=== PATIENT | female | born 1975 | race Two or more races ===

== ENCOUNTER → 2018-05-06 | Outpatient (CLI) | payer MEDICAID | LOC: FIMAGING 12:47 | PROVIDERS: ATTEND Surgery | DX: N63.23 Unspecified lump in the left breast, lower outer quadrant (principal); N63.22 Unspecified lump in the left breast, upper inner quadrant; R92.2 Inconclusive mammogram ==

== ENCOUNTER 2018-06-27 05:41 | Day surgery (SDC) | payer MEDICAID ==
[2018-06-27] MEDS ORDERED: LR 1,000 ML IV ONE (05:49)
[2018-06-27] MEDS ORDERED: LIDOCAINE 1% 300 MG/30 ML SDV ONE (06:57)
[2018-06-27] MEDS ORDERED: BUPIVACAINE/EPI 0.5% 30 ML SDV ONE (06:57)
--- NOTE | 2018-06-27 06:57 | PDHPUP ---
History & Physical Update H&P update statement: This history and physical update is based on an assessment of the patient which was completed after admission or registration (within 24 hours), but prior to the surgery/procedure. H&P update: H&P reviewed & patient examined, no change in patient's condition since H&P completed
--- NOTE | 2018-06-27 07:08 | PDANEPAE ---
ANE Past Medical History - Cardiovascular History Hx Hypertension: No Hx Arrhythmias: No Hx Chest Pain: No Hx Coronary Artery / Peripheral Vascular Disease: No Hx CHF / Valvular Disease: No Hx Palpitations: No - Pulmonary History Hx COPD: No Hx Asthma/Reactive Airway Disease: Yes Hx Recent Upper Respiratory Infection: No Hx Oxygen in Use at Home: No Hx Sleep Apnea: No Sleep Apnea Screening Result - Last Documented: Negative Pulmonary History Comment: MILD ASTHMA - W/URI INFS - Neurologic History Hx Cerebrovascular Accident: No Hx Seizures: No Hx Dementia: No - Endocrine History Hx Diabetes: No - Renal History Hx Renal Disorders: No - Liver History Hx Hepatic Disorders: No - Neurological & Psychiatric Hx Hx Neurological and Psychiatric Disorders: No - Cancer History Hx Cancer: No - Congenital Disorder History Hx Congenital Disorders: No - GI History Hx Gastrointestinal Disorders: No - Other Health History Other Health History: NEG - Chronic Pain History Chronic Pain: No - Surgical History Prior Surgeries: TUBAL LIGATION. PARTIAL HYSTERECTOMY. I & D BREAST INF. PAUL TUMORS BENIGN BREAST 2016. GANGLION CYST R WRIST. CHOLECYSTECTOMY ANE Review of Systems Review of Systems: - Exercise capacity METS (RN): 4 METS ANE Patient History - Allergies Allergies/Adverse Reactions: promethazine HCl [From Phenergan] Allergy (Severe, Verified 10/05/09 07:52) Dyspnea blue dye Allergy (Verified 06/27/18 06:02) FD and C blue no.1 [blue food coloring] Allergy (Verified 06/27/18 06:02) - Home Medications Home Medications: Advil 06/23/18 [Last Taken 06/20/18] 06/23/18 [Last Taken 06/23/18] - NPO status NPO Since - Liquids (Date): 06/27/18 NPO Since - Liquids (Time): 03:00 NPO Since - Solids (Date): 06/26/18 NPO Since - Solids (Time): 20:00 - Smoking Hx Smoking Status: Former smoker - Family Anes Hx Family Hx Anesthesia Complications: MOTHER SLOW TO AWAKEN ANE Labs/Vital Signs - Vital Signs Blood Pressure: 119/73 Heart Rate: 75 Respiratory Rate: 16 O2 Sat (%): 97 Height: 154.94 cm Weight: 74.843 kg ANE Physical Exam - Airway Mallampati Score: Class 1 - ASA Status ASA Status: II ANE Anesthesia Plan Anesthesia Plan: GA w LMA
[2018-06-27] MEDS ORDERED: PROPOFOL 200 MG/20 ML VIAL ONE (07:12)
[2018-06-27] MEDS ORDERED: MIDAZOLAM 2 MG/2 ML VIAL ONE (07:12)
[2018-06-27] MEDS ORDERED: fentaNYL 100 MCG/2 ML INJ ONE ×3 (07:12→09:01)
[2018-06-27] MEDS ORDERED: ONDANSETRON 4 MG/2 ML VIAL ONE (07:14)
[2018-06-27] MEDS ORDERED: LIDOCAINE 2% JELLY 6 ML TOPICAL SYR ONE (07:14)
[2018-06-27] MEDS ORDERED: METOCLOPRAMIDE 10 MG/2 ML VIAL ONE (07:14)
--- NOTE | 2018-06-27 08:18 | POSTOPPROG ---
Post Op Note Date of Operation: 06/27/18 Surgeon: Dale Nova Radio Mechanic Helper: Hermila Zaman Anesthesiologist: Wade Randhawa Anesthesia: GET(General Endotracheal) Pre-op Diagnosis: left breast mass Post-op Diagnosis: same Procedure: left central lumpectomy Findings: large multilobulated left central breast mass Inf/Abcess present in the surg proc area at time of surgery?: No EBL: Minimal Specimen(s): breast mass
[2018-06-27] MEDS ORDERED: HYDROCODONE/APAP 5/325 TAB PO PRN (08:34)
[2018-06-27] MEDS ORDERED: LR 500 ML IV PRN (08:34)
[2018-06-27] MEDS ORDERED: ALBUTEROL 3 ML DEYVIAL IH PRN (08:34)
[2018-06-27] MEDS ORDERED: NALOXONE HCL 0.4 MG/ML INJ IVP PRN (08:34)
[2018-06-27] MEDS ORDERED: fentaNYL 100 MCG/2 ML INJ IVP PRN (08:34)
--- NOTE | 2018-06-27 08:35 | POSTANESTH ---
Post Anesthetic Evaluation Cardiovascular Status: Normal, Stable Respiratory Status: Normal, Stable Level of Consciousness/Mental Status: Can Participate in Eval Pain Control: Adequate, Prn Tx Ordered Nausea/Vomiting Control: Adequate, Prn Tx Ordered Complications Possibly Related to Anesthesia: None Noted
--- NOTE | 2018-06-27 09:54 | GOP ---
[f rep st] OPERATIVE REPORT DATE OF OPERATION: 06/27/2018 SURGEON: Dale Nova MD [employer]OR [employer] SALESPERSON: Hermila Zaman PA-C. ANESTHESIA: General. ANESTHESIOLOGIST: Dr. Randhawa. PREOPERATIVE DIAGNOSIS: Left breast mass. POSTOPERATIVE DIAGNOSIS: Left breast mass. PROCEDURE PERFORMED: Excision of left breast biopsy with ultrasound localization. FINDINGS: INDICATIONS: A 43-year-old female with a large multilobulated subareolar breast mass. She is underg oing surgical excision at this time. Risks and benefits were explained including bleeding, infection , differential diagnoses, tumor recurrence, need for additional surgical intervention, as well as oth ers. All questions were answered. She desires to proceed. machine operator assistant is standard, necessar y, and customary for the safe performance of this procedure. DESCRIPTION OF PROCEDURE: After general anesthesia were induced, the breast was infiltrated with 1% lidocaine and 0.5% Marcaine. Intraoperative ultrasound was utilized to identify the large subareolar breast mass along with left 2 o'clock multilobulated extension. A circumareolar incision was create d around the nipple-areolar complex. The dense fibrofatty tissues were divided down to the deeply lo cated tumor. Using electrocautery, the mass was completely excised away from the subareolar planes u sing ultrasound. This was followed out to the left lateral aspect of the breast, incorporating the o ther lobulations. The specimen was removed, tagged for orientation, and sent for permanent specimen processing. Satisfactory hemostasis was assured. No other visible lobule or lobulations were left b ehind. The breast was closed in multiple layers using absorbable suture by Dermabond. The patient w as taken to Recovery uneventfully. /[id number]/MODL
[2018-06-27] MEDS ORDERED: HYDROCODONE/APAP 5/325 TAB ONE (10:56)
[2018-06-27 11:20] VITALS: BP 122/77
== END 2018-06-27 11:10 | disposition home or self-care (01) ==
LOC: FSGY 05:41
PROVIDERS: ATTEND Surgery
PROC: 0HBU0ZX Excision of Left Breast, Open Approach, Diagnostic (ICD-10-PCS; principal; 2018-06-27 07:15)
DX: D24.2 Benign neoplasm of left breast (principal); N60.22 Fibroadenosis of left breast; Z87.891 Personal history of nicotine dependence
CPT/HCPCS: J2250; J2405; J2704; J2765; J3010